=== PATIENT | female | born 1950 | race Native Hawaiian/Other Pacific Islander ===

== ENCOUNTER 2021-02-02 12:28 | Outpatient (CLI) | payer OTHER, MEDICARE ==
[2021-02-02 14:48] LABS: PLATELET COUNT 323 K/uL (152-353)
[2021-02-02 15:16] LABS: POTASSIUM 3.9 mmol/L (3.6-5.2)
== END 2021-02-02 19:35 | disposition home or self-care (01) ==
LOC: LAB 12:28
PROVIDERS: ATTEND Nurse Practitioner Family
DX: Z00.00 Encounter for general adult medical examination without abnormal findings (principal); Z79.899 Other long term (current) drug therapy; R53.83 Other fatigue; R53.81 Other malaise; E03.8 Other specified hypothyroidism; I10 Essential (primary) hypertension
CPT/HCPCS: 80053; 80061; 82306; 82607; 83036; 84439; 84443; 85027